=== PATIENT | female | born 1945 | race Caucasian/White ===

== ENCOUNTER 2016-06-30 13:42 | Observation (INO) ==
--- NOTE | 2016-06-30 14:23 | XRay Report ---
HISTORY: Reason for Exam:Fall, deformity FINDINGS: Patient has an acute trimalleolar fracture. Both medial lateral malleoli are fractured. There are both rotated and displaced in a lateral direction. The talus is partially dislocated laterally. There is a small fracture along the posterior border of the posterior malleolus. There is soft tissue swelling around the joint. IMPRESSION: Acute trimalleolar fracture with significant lateral angulation and deformity at the ankle joint Interpreted and Authenticated by: Aleskey Cerda 06/30/16
--- NOTE | 2016-06-30 14:44 | Emergency Department Note ---
Lower Extremity Injury HPI - General Chief Complaint: Extremity Injury, Lower Stated Complaint: Right Ankle Time Seen by Provider: 06/30/16 14:15 Source: patient Mode of arrival: ambulatory Limitations: no limitations - History of Present Illness HPI Narrative: Patient presents, tripped while getting up from the couch, wearing shoes, inverted ankle. HEENT, treated with IV medications by ambulance in route, currently comfortable. No other injury, no loss of consciousness. no chest pain, no syncope. Previous repair of the left ankle surgically. - Related Data Home Medications Medication Instructions Recorded Confirmed Aspirin [Ecotrin] 81 mg PO QDAY 01/28/15 01/28/15 Calcium Carbonate/Vitamin D3 1 tablet PO QDAY 01/28/15 01/28/15 [Calcium 600 + Vit D 800 Tab] DULoxetine HCL [Cymbalta] 60 mg PO QDAY 01/28/15 01/28/15 Ergocalciferol (Vitamin D2) 50,000 unit PO Q2W 01/28/15 01/28/15 [Drisdol] Insulin Aspart [Novolog] 70 unit SQ QDAY 01/28/15 01/28/15 Levothyroxine Sodium [Synthroid] 200 mcg PO DAILY 01/28/15 01/28/15 Lisinopril [Zestril] 20 mg PO BID 01/28/15 01/28/15 Montelukast [Singular] 10 mg PO HS 01/28/15 01/28/15 Multivit,Th Iron,Other Min 1 tablet PO QDAY 01/28/15 01/28/15 [Complete Multivitamin] Raloxifene HCl [Evista] 60 mg PO DAILY 01/28/15 01/28/15 Simvastatin [Zocor] 40 mg PO HS 01/28/15 01/28/15 buPROPion HCL [Bupropion HCl Sr] 300 mg PO QDAY 01/28/15 01/28/15 Magnesium Chloride [Slow-Mag] 71.5 mg PO BID 01/29/15 01/29/15 Allergies Allergy/AdvReac Type Severity Reaction Status Date / Time NO KNOWN DRUG ALLERGIES Allergy Unknown Uncoded 08/28/14 14:35 Review of Systems All systems ED: reviewed and negative except as stated. Past Medical History - Past Medical History Attestation: Yes: The following information was validated with the patient. Medical history: Reports: hypertension, other (insulin-dependent type 2 diabetic ). Denies: coronary artery disease Surgical history ED: Reports: other (eft ankle) Family history: Reports: non-contributory - Social History smoking status: Never smoker Physical Exam - General Limitations: no limitations General appearance: alert, in no apparent distress - Head Head exam: atraumatic - Eye Eye exam: Present: normal appearance - ENT ENT exam: normal exam - Neck Neck exam: Present: normal inspection - Chest Chest inspection: Present: normal inspection - Respiratory Respiratory exam: Present: normal lung sounds bilaterally. Absent: respiratory distress - Cardiovascular Cardiovascular exam: Present: regular rate, normal rhythm - Abdominal Exam Abdominal exam: Present: soft. Absent: tenderness - Extremities Exam Extremities exam: Present: other (right ankle braced, lateral angulation; intact neurovascular foot) Course Vital Signs Temperature 98.1 F 06/30/16 13:43 Pulse Rate 80 06/30/16 13:43 Respiratory Rate 16 06/30/16 13:43 Blood Pressure 115/65 06/30/16 13:43 Pulse Oximetry (%) 94 06/30/16 13:43 Temperature 98.1 F 06/30/16 13:43 Pulse Rate 80 06/30/16 14:23 Respiratory Rate 16 06/30/16 13:43 Blood Pressure 98/85 06/30/16 14:23 Pulse Oximetry (%) 92 06/30/16 14:23 Extremity Injury, Lower - Lab Data Result diagrams: 06/30/16 14:25 06/30/16 14:25 Lab Results 06/30/16 Range/Units 14:25 Band Neutrophils % Not Reportable - EKG Data EKG attestation: Yes I reviewed and interpreted this EKG. EKG shows normal: sinus rhythm Disposition Clinical Impression: Ankle fracture Qualifiers: Encounter type: initial encounter Fracture type: closed Laterality: right Qualified Code(s): S82.891A - Other fracture of right lower leg, initial encounter for closed fracture Disposition: Xfer As Inpt ([facility] [place] Condition: Good Additional Instructions: observation admission, Dr. Ortega receiving; planned surgery tomorrow Referrals: Ember Farris MD [Primary Care Provider] -
[2016-06-30 15:24] LABS: Mean Cell Volume 83.4 fL (80.0-100.0); Mean Corpuscular HGB Conc 31.5 g/dL (31.0-36.0); Mean Corpuscular Hemoglobin 26.2 pg (26.0-34.0); Platelet Count 303 K/mcL (140-440); RBC 4.96 M/mcL (4.00-5.20); Red Cell Distribution Width 15.7 % (11.5-14.5)
[2016-06-30 15:45] LABS: ALT/SGPT 11 U/l (0-40); Albumin/Globulin Ratio 1.3 (1.0-2.3); Alkaline Phosphatase 83 U/L (39-117); Blood Urea Nitrogen 18 mg/dl (8-23)
[2016-06-30 16:24] LABS: Band Neutrophils % 2 % (0-10); Basophils % (Manual) 1 % (0-2); Eosinophils % (Manual) 2 % (0-7); Lymphocytes % 15 % (15-49); Monocytes % (Manual) 3 % (1-12); Platelet Estimate NORMAL (NORMAL); RBC Morphology NORMAL (NORMAL); Segmented Neutrophils % 77 % (38-78)
[2016-06-30] MEDS: HYDROmorphone 2 MG/ML SYRINGE IV PRN ×2 (16:30→23:49)
[2016-06-30] MEDS ORDERED: IRBESARTAN 300 MG TABLET PO SCH (21:00)
[2016-06-30] MEDS: MONTELUKAST 10 MG TABLET PO SCH (23:22)
[2016-06-30] MEDS: HYDROCHLOROTHIAZIDE 12.5 MG CAPSULE PO SCH (23:22)
[2016-07-01] MEDS: LACTATED RINGERS 1,000 ML IV SCH ×3 (06:06→22:08)
[2016-07-01 06:18] LABS: Appearance,Urine CLEAR; Bacteria,Urine 0 /hpf (0); Bilirubin,Urine NEG (NEG); Color,Urine STRAW; Glucose,Urine (UA) >=500 mg/dL (NEG); Leukocyte Esterase,Urine NEG /uL (NEG); Mucus,Urine FEW /hpf (0); Nitrate,Urine NEG (NEG); Protein,Urine NEG (NEG); Specific Gravity,Urine 1.022 (1.000-1.035); Urine Blood 0.03 mg/dL (<0.03); Urine Hyaline Cast 4 /lpf (0-2); Urine RBC 2 /hpf (0-1); Urine Squamous Epithelial Cell 1 /hpf (0-4); Urine WBC 1 /hpf (0-4); Urobilinogen,Urine NEG (NEG)
[2016-07-01] MEDS: HYDROmorphone 2 MG/ML SYRINGE IV PRN ×2 (06:40→10:28)
[2016-07-01] MEDS: LEVOTHYROXINE 100 MCG TABLET PO SCH (08:11)
[2016-07-01] MEDS ORDERED: IRBESARTAN 300 MG TABLET PO SCH (09:00)
[2016-07-01] MEDS: ONDANSETRON 4 MG/2 ML VIAL IV PRN ×2 (10:28→15:41)
[2016-07-01] MEDS ORDERED: ONDANSETRON 4 MG/2 ML VIAL ONE (15:40)
[2016-07-01] MEDS ORDERED: SCOPOLAMINE 1 PATCH PATCH TOPICAL ONE (15:48)
[2016-07-01] MEDS ORDERED: ceFAZolin 1 GM VIAL IV SCH (16:00)
[2016-07-01] MEDS ORDERED: BUPIVACAINE 0.5% 50 ML VIAL IJ ONE (16:02)
[2016-07-01] MEDS ORDERED: HYDROmorphone 2 MG/ML SYRINGE IV PRN ×2 (17:47→18:28)
[2016-07-01] MEDS ORDERED: ONDANSETRON 4 MG/2 ML VIAL IV PRN ×2 (17:47→18:28)
[2016-07-01] MEDS ORDERED: ONDANSETRON 4 MG/2 ML VIAL IV ONE (17:50)
[2016-07-01] MEDS ORDERED: MIDAZOLAM 5 MG/5 ML VIAL IV ONE (17:50)
[2016-07-01] MEDS ORDERED: DEXAMETHASONE 10 MG/ML VIAL IV ONE (17:50)
[2016-07-01] MEDS ORDERED: LIDOCAINE HCL/PF 100 MG/5 ML SYRINGE IV ONE (17:50)
[2016-07-01] MEDS ORDERED: fentaNYL 250 MCG/5 ML VIAL IV ONE (17:50)
[2016-07-01] MEDS ORDERED: PROPOFOL 200 MG/20 ML VIAL IV ONE (17:50)
--- NOTE | 2016-07-01 17:51 | Brief Operative Note ---
Date of procedure: 07/01/16 Pre-op diagnosis: Right ankle bimalleolar ankle fracture Post-op diagnosis: same Procedure: right ankle orif of bimaleolar ankle fx Grafts/Implants: Yes Anesthesia: GETA Complications: none Surgeon: Derick Shah Ged Tutor: Jose Enrique Cedeno Estimated blood loss (cc): 20 Tourniquet Time (Minutes): 40 Specimens Removed/Pathology: none sent Condition: stable Disposition: PACU
[2016-07-01] MEDS ORDERED: LACTATED RINGERS 1,000 ML IV SCH ×2 (18:00→18:30)
[2016-07-01] MEDS ORDERED: diphenhydrAMINE 50 MG/ML VIAL IV PRN (18:28)
[2016-07-01] MEDS ORDERED: PROMETHAZINE 25 MG/ML VIAL IV PRN (18:28)
[2016-07-01] MEDS ORDERED: BENZOCAINE/MENTHOL 1 LOZENGE PO PRN (18:28)
[2016-07-01] MEDS ORDERED: IPRATROPIUM/ALBUTEROL 3 ML AMPUL.NEB NEB PRN (18:28)
[2016-07-01] MEDS ORDERED: NALOXONE HCL 0.4 MG/ML VIAL IV PRN (18:28)
[2016-07-01] MEDS ORDERED: LACTATED RINGERS 250 ML IV PRN (18:28)
[2016-07-01] MEDS ORDERED: fentaNYL 100 MCG/2 ML VIAL IV PRN (18:28)
[2016-07-01] MEDS ORDERED: METHOCARBAMOL 1,000 MG/10 ML VIAL IV PRN (18:28)
[2016-07-01] MEDS ORDERED: MEPERIDINE 25 MG/ML SYRINGE IV PRN (18:28)
[2016-07-01] MEDS ORDERED: FLUMAZENIL 0.1 MG/ML ML IV PRN (18:28)
[2016-07-01] MEDS ORDERED: MONTELUKAST 10 MG TABLET PO SCH ×2 (21:00)
[2016-07-01] MEDS ORDERED: IRBESARTAN PO SCH (21:00)
[2016-07-01] MEDS ORDERED: [UNRECOGNIZED DRUG - OTHER] PO SCH (21:00)
[2016-07-01] MEDS ORDERED: HYDROCHLOROTHIAZIDE 12.5 MG CAPSULE PO SCH (21:00)
[2016-07-01] MEDS ORDERED: HYDROCHLOROTHIAZIDE PO SCH (21:00)
[2016-07-01] MEDS ORDERED: MAGNESIUM CHLORIDE 71.5 MG PO SCH (21:00)
[2016-07-01] MEDS: 0.9 % SODIUM CHLORIDE 10 ML SYRINGE IV SCH (21:31)
[2016-07-01] MEDS: HYDROCHLOROTHIAZIDE 12.5 MG CAPSULE PO SCH (21:42)
[2016-07-01] MEDS: MONTELUKAST 10 MG TABLET PO SCH (21:42)
[2016-07-01] MEDS: SIMVASTATIN 40 MG TABLET PO SCH (21:42)
[2016-07-01] MEDS: LOSARTAN 50 MG TABLET PO SCH (21:43)
--- NOTE | 2016-07-01 21:54 | History and Physical Report ---
DATE OF ADMISSION: 06/30/2016 Patient was seen in the emergency room and diagnosed appropriately with a bimalleolar ankle fracture-dislocation, Valle C fracture of the fibula with a spiral fracture pattern, widening of the medial mortise and transverse fracture pattern of the medial mortise. She fell with a twisting injury to the ankle, was unable to bear weight. She thought this would get better, but it did not. When she tried to bear weight at any time she finally came to the Emergency Room where she was diagnosed with a bimalleolar ankle fracture. She has otherwise had other health problems, which include diabetes and occasional arrhythmia. She has been a household ambulator. She has no active chest pain or shortness of breath. Given her history, she understands there is a risk with the surgery. MEDICATIONS: Quite extensive. These include albuterol for asthma. She does take insulin for her diabetes. She is on chronic pain medication with fentanyl and hydromorphone. She takes pain pills on occasion. ALLERGIES: She otherwise lists NO KNOWN DRUG ALLERGIES. OTHER MEDICATION: Zocor 40 mg by mouth at bedtime. Evista 60 mg by mouth at bedtime. PHYSICAL EXAMINATION: GENERAL: Very pleasant elderly 70-year-old female who is alert, oriented, cooperative, in good condition. No acute distress. LUNGS: Clear to auscultation with occasional expiratory wheeze consistent with low grade asthma. CARDIOVASCULAR: She has a fairly regular rate and rhythm with no murmurs, rubs or gallops, the rate being about 80. ABDOMEN: Soft, nontender. EXTREMITIES: The right leg is swollen and stiff. She can move her toes, but the foot fairly swollen without any signs of compartment syndrome. There is good pink perfusion. She has normal light touch sensation. TEST REVIEW: X-rays of the right ankle show bimalleolar ankle fracture-dislocation and separation. There is a spiral fracture of the fibula, transverse fracture medially, there is widening of the syndesmosis. TREATMENT: Will be an open reduction and internal fixation with bimalleolar ankle fracture fixation with hardware plate laterally, 2 screws medially and a syndesmosis screw. The patient understands the risks to be heart attack, stroke, infection and agrees to proceed. She will be made NPO, prior to surgery, at least 8 hours. ANGUS: Job ID: [id number] Doc ID: [id number] Derick Shah MD
[2016-07-02] MEDS: ceFAZolin 1 GM VIAL IV SCH ×2 (01:08→11:29)
[2016-07-02] MEDS: 0.9 % SODIUM CHLORIDE 10 ML SYRINGE IV SCH ×2 (05:36→17:17)
[2016-07-02] MEDS: LEVOTHYROXINE 100 MCG TABLET PO SCH (07:32)
--- NOTE | 2016-07-02 08:01 | XRay Report ---
HISTORY: Reason for Exam:Post Op repair fractured ankle FINDINGS: There is a metal plate secured to the lateral border of the distal fibula using multiple screws. There are two screws placed to the medial malleolus into the shaft of the tibia. The fractures of the medial lateral malleoli are now normally aligned. The talus is also not normally aligned with the tibia. The posterior malleolus appears intact. IMPRESSION: Normal alignment following open reduction internal fixation of fractured medial and lateral malleolar Interpreted and Authenticated by: Aleksey Cerda 07/02/16
[2016-07-02] MEDS: MULTIVIT,THER IRON,CA,FA & MIN 1 TABLET PO SCH (08:16)
[2016-07-02] MEDS: CALCIUM W/VIT D3 500 MG TABLET PO SCH (08:16)
[2016-07-02] MEDS: RALOXIFENE HCL 60 MG TABLET PO SCH (08:16)
[2016-07-02] MEDS: DULoxetine 30 MG CAPSULE PO SCH (08:17)
[2016-07-02] MEDS ORDERED: buPROPion 150 MG TAB.SR.12H PO SCH (09:00)
[2016-07-02] MEDS ORDERED: NON FORMULARY MEDICATION 1 DOSE MISCELL (Aspirin [Ecotrin] 81 MG) PO SCH (09:00)
[2016-07-02] MEDS ORDERED: LEVOTHYROXINE SODIUM 200 MCG PO SCH (09:00)
[2016-07-02] MEDS: HYDROcodone/APAP 10/325MG TABLET PO PRN ×2 (09:19→11:32)
--- NOTE | 2016-07-02 09:34 | Orthopedic Progress Note ---
Subjective Patient information: Note initiated : 07/02/16 at 9:33 am Service Date, if different from initiated Date: [] Patient: Jodi Mckenna 70 y/o F admitted on 06/30/16 for Right Ankle Fracture. Chief Complaint: [minimal pain but unable to ambulate more than 2-3 steps] Objective Vital signs: Vital Signs Temp Pulse Pulse Resp BP BP BP 07/02/16 08:00 97.7 F 18 126/77 07/02/16 07:45 07/02/16 07:30 07/02/16 03:41 97.0 F L 76 18 143/65 07/02/16 00:00 98.5 F 87 18 166/65 07/01/16 22:45 98.4 F 98 H 16 178/80 07/01/16 21:45 98.4 F 99 H 16 168/84 07/01/16 21:15 98.4 F 110 H 18 186/81 07/01/16 20:45 98.6 F 100 H 18 178/93 07/01/16 20:30 102 H 16 177/98 07/01/16 20:15 98.4 F 99 H 18 168/95 07/01/16 20:00 98.5 F 100 H 18 174/94 07/01/16 19:51 07/01/16 19:40 99.0 F 98 H 108 H 20 175/75 07/01/16 19:35 98.1 F 101 H 108 H 20 154/80 07/01/16 19:25 98.1 F 101 H 108 H 20 154/80 07/01/16 19:20 98.1 F 99 H 108 H 20 175/84 07/01/16 19:15 98.1 F 103 H 108 H 20 165/79 07/01/16 19:10 98.1 F 108 H 108 H 20 170/79 07/01/16 15:52 98.4 F 86 20 136/70 07/01/16 12:00 98.5 F 93 H 20 156/73 Pulse Ox 07/02/16 08:00 95 07/02/16 07:45 96 07/02/16 07:30 96 07/02/16 03:41 94 07/02/16 00:00 95 07/01/16 22:45 94 07/01/16 21:45 93 07/01/16 21:15 94 07/01/16 20:45 92 07/01/16 20:30 95 07/01/16 20:15 92 07/01/16 20:00 82 L 07/01/16 19:51 91 07/01/16 19:40 98 07/01/16 19:35 96 07/01/16 19:25 96 07/01/16 19:20 96 07/01/16 19:15 93 07/01/16 19:10 93 07/01/16 15:52 92 07/01/16 12:00 92 Intake and Output 07/01/16 07/02/16 07/02/16 21:59 05:59 13:59 Intake Total 2225 / 2225 2115 / 2115 300 / 300 Output Total 2450 / 2450 1025 / 1025 Balance -225 / -225 1090 / 1090 300 / 300 Intake: IV 365 / 365 Lactated Ringers 1,000 ml 365 / 365 @ 50 mls/hr IV .Q20H GALNIDO Rx#:[id number] Oral 325 / 325 1750 / 1750 300 / 300 IV - Manual Only 1900 / 1900 Output: Void Amount 1150 / 1150 1025 / 1025 Emesis 1300 / 1300 Other: Meal Lunch Nathaniel crackers and Jello cup Breakfast Percent of Meal Consumed 0% 100% 100% Feeding Ability Independent Independent Independent # Voids 1 1 Weight 224 lb 8 oz Intake & Output: Intake & Output 07/01/16 07/02/16 07/02/16 21:59 05:59 13:59 Intake Total 2225 / 2225 2115 / 2115 300 / 300 Output Total 2450 / 2450 1025 / 1025 Balance -225 / -225 1090 / 1090 300 / 300 Weight 224 lb 8 oz Intake: IV 365 / 365 Lactated Ringers 1,000 ml 365 / 365 @ 50 mls/hr IV .Q20H GALINDO Rx#:[id number] Oral 325 / 325 1750 / 1750 300 / 300 IV - Manual Only 1900 / 1900 Output: Void Amount 1150 / 1150 1025 / 1025 Emesis 1300 / 1300 Other: Meal Lunch Nathaniel crackers and Jello cup Breakfast Percent of Meal Consumed 0% 100% 100% Feeding Ability Independent Independent Independent # Voids 1 1 Incision: Yes healing Incision clean and dry: Yes Dressing: Yes clean Weight bearing status: non Neurological exam IM: Yes oriented X3, Yes neurovascular intact Extremities exam IM: Yes Foot pink and warm (unable to ambulater so will need assistance in nh or home health), Yes neurovascular intact - Labs CBC & BMP: 06/30/16 14:25 06/30/16 14:25
[2016-07-02] MEDS: MAGNESIUM CHLORIDE 71.5 MG PO SCH ×2 (11:28→23:02)
[2016-07-02] MEDS: ASPIRIN 325 MG ENTERIC COATED TABLET PO SCH ×2 (12:52→20:42)
[2016-07-02] MEDS: HYDROCHLOROTHIAZIDE 12.5 MG CAPSULE PO SCH (20:41)
[2016-07-02] MEDS: MONTELUKAST 10 MG TABLET PO SCH (20:41)
[2016-07-02] MEDS: SIMVASTATIN 40 MG TABLET PO SCH (20:42)
[2016-07-02] MEDS: LOSARTAN 50 MG TABLET PO SCH (20:42)
[2016-07-03] MEDS: 0.9 % SODIUM CHLORIDE 10 ML SYRINGE IV SCH (00:56)
[2016-07-03] MEDS: LEVOTHYROXINE 100 MCG TABLET PO SCH (06:49)
[2016-07-03] MEDS: DULoxetine 30 MG CAPSULE PO SCH (08:17)
[2016-07-03] MEDS: CALCIUM W/VIT D3 500 MG TABLET PO SCH (08:17)
[2016-07-03] MEDS: MAGNESIUM CHLORIDE 71.5 MG PO SCH ×2 (08:18→20:55)
[2016-07-03] MEDS: MULTIVIT,THER IRON,CA,FA & MIN 1 TABLET PO SCH (08:18)
[2016-07-03] MEDS: ASPIRIN 325 MG ENTERIC COATED TABLET PO SCH ×2 (08:18→20:53)
[2016-07-03] MEDS: RALOXIFENE HCL 60 MG TABLET PO SCH (08:18)
[2016-07-03] MEDS: LOSARTAN 50 MG TABLET PO SCH (20:52)
[2016-07-03] MEDS: SIMVASTATIN 40 MG TABLET PO SCH (20:54)
[2016-07-03] MEDS: HYDROCHLOROTHIAZIDE 12.5 MG CAPSULE PO SCH (20:54)
[2016-07-03] MEDS: MONTELUKAST 10 MG TABLET PO SCH (20:54)
[2016-07-04] MEDS: LEVOTHYROXINE 100 MCG TABLET PO SCH (07:07)
[2016-07-04] MEDS: ASPIRIN 325 MG ENTERIC COATED TABLET PO SCH (08:57)
[2016-07-04] MEDS: DULoxetine 30 MG CAPSULE PO SCH (08:57)
[2016-07-04] MEDS: RALOXIFENE HCL 60 MG TABLET PO SCH (08:57)
[2016-07-04] MEDS: MULTIVIT,THER IRON,CA,FA & MIN 1 TABLET PO SCH (08:57)
[2016-07-04] MEDS: CALCIUM W/VIT D3 500 MG TABLET PO SCH (08:57)
[2016-07-04] MEDS: MAGNESIUM CHLORIDE 71.5 MG PO SCH (08:58)
--- NOTE | 2016-07-04 10:12 | Operative Note ---
DATE OF OPERATION: 07/01/2016 PREOPERATIVE DIAGNOSIS: Right ankle bimalleolar ankle fracture with syndesmosis rupture. POSTOPERATIVE DIAGNOSIS: Right ankle bimalleolar ankle fracture with syndesmosis rupture. PROCEDURE: Right ankle open reduction and internal fixation of a bimalleolar ankle fracture and a syndesmosis screw placement. FINDINGS: This fracture was a bimalleolar Valle C with a spiral fracture laterally that extended from about a centimeter above the joint line laterally with minimal comminution. Medially it was a transverse fracture of the medial malleolus with widening of the syndesmosis and subluxation of the joint line. ESTIMATED BLOOD LOSS: Minimal. TOURNIQUET TIME: None. DESCRIPTION OF PROCEDURE: The patient was brought to the operating room and put to sleep with general LMA anesthesia. Once asleep, the patient had the right leg sterilely prepped and draped after confirming this was the operative leg, confirming initials and preop antibiotics and tranexamic acid. We then made an incision laterally, identified the fracture line with a spiral fracture pattern that extended from just above the joint line laterally and posteriorly. With this, we performed an open reduction and traction to reduce the ankle. This reduced nicely medially using imaging. We then placed a 5-hole fibular plate laterally. This had five screws in the fibula and an additional four screws in the distal fragment. We placed one syndesmosis screw. We made a tricortical drill hole through the plate 2 cm proximal to the joint line and a 48 mm fully-threaded screw was placed. This gave excellent reduction of the syndesmosis and kept the joint in place. Once we had done this and took images, we then proceeded medially. We made about an inch and a half incision medially that extended over the anterior joint line and medial. We identified the syndesmosis and reduced the medial malleolus. Once this was reduced, we placed two guidewires, confirmed the reduction and placed two screws. These were 4.0 partially-threaded 50 mm cancellous screws. These were predrilled and both screws placed. This gave anatomic reduction and compression of the fracture medially. We irrigated thoroughly and then closed the wound medially with 2-0 Vicryl and daysi superficially. Laterally we closed the fascial layer with 2-0 Vicryl and then the subcutaneous closure with 2-0 Vicryl and daysi superficially. The patient was placed into a walking boot at the end of the case. There was no complication. Blood loss was approximately 50 mL. ANGUS:sanjay Job ID: [id number] Doc ID: [id number] Derick Shah MD
--- NOTE | 2016-07-04 12:51 | Discharge Summary ---
Ortho Discharge - TSA - Patient Instructions Diet: Regular Diet Activity: activity as tolerated, weight bearing as tolerated Total Shoulder Protocol: Leave immobilizer in place except for bathing and ROM. Abduction pillow. Continue to wear sling until seen by physician. Codman Pendulum : These exercises use momentum produced by your body to move your shoulder joint. Bend your knees and shift your weight to your front leg, then back, allowing your arm to swing in the same directions. Using the same technique, alternately shift your weight between your right and left legs, allowing your arm to swing from side to side. These exercises are also performed in counterclockwise and clockwise circular motions. Typically these exercises are performed several times per day, for a set number repetitions or minutes, such as 20 times in a row or 5 minutes at a time. Dressing Care: Aquacel Ag - leave on for 5 days Patient Education: Open Reduction and Internal Fixation of an Ankle Fracture ( DC) - Follow Up Plan Follow Up Appointments: Ember Farris MD [Primary Care Provider] - Disposition: [facility] Prognosis: Good Rehab Potential: Good I certify that the patient requires SNF services: Yes Overall status at discharge: patient is progressing back to baseline - Orders For Discharge Prescriptions: HYDROcodone/APAP 10/325MG [[place] 10/325Mg] 1 - 2 tab PO Q4H PRN #60 tablet PRN Reason: Pain Additional Discharge Orders: Physical Therapy at Discharge - TSA Location: Determined By Patient Brace/Splint Location: Determined By Patient
[2016-07-15] MEDS ORDERED: ERGOCALCIFEROL (VITAMIN D2) 50,000 UNIT CAPSULE PO SCH (09:00)
== END 2016-07-04 15:27 ==
LOC: ED 13:42 → MEDSUR 13:42
PROVIDERS: ADMIT Orthopaedic Surgery; ATTEND Orthopaedic Surgery